=== PATIENT | male | born 1950 | race Caucasian/White ===

== ENCOUNTER 2019-08-21 09:42 | Inpatient (IN) | payer MEDICARE, MEDICAID ==
[~2019-08-21] VITALS: Ht 177.8 cm; Wt 116.0 kg
[~2019-08-21 09:42] MED LIST: FURO20TA2 PO; LISI-542 PO; ONDA-83 PO; OXYC-517 PO; SIMV20TA22 PO; ZYLO300T6 PO
[2019-08-21 12:50] VITALS: BP 129/67
[2019-08-21] MEDS ORDERED: NS 2,000 ML IV ONE ×2 (13:15→19:00)
[2019-08-21] MEDS ORDERED: NS 1,000 ML IV SCH (13:16)
--- NOTE | 2019-08-21 13:51 | REP ---
Portable chest, 01:30 p.m., single AP view with the the patient sitting: There are no comparisons. The lung torres are clear. The cardiac size is normal. The suresh, mediastinum, and skeletal structures are unremarkable. Impression: Negative portable chest. Electronically Signed by David Rogers MD 08/21/2019 01:43 P
[2019-08-21 14:54] LABS: IONIZED CALCIUM 4.5 MG/DL (4.5-5.3)
[2019-08-21 15:01] LABS: BASO % 0.2 % (0.0-1.0); HEMATOCRIT 34.5 % (42.0-52.0); HEMOGLOBIN 10.5 g/dl (13.5-17.5); LYMPH # 0.5 10^3/uL (1.5-5.0); MEAN CORPUSCULAR HEMOGLOBIN 26.1 pg (27.0-33.0); MEAN CORPUSCULAR HGB CONC 30.4 g/dl (32.0-36.5); MEAN CORPUSCULAR VOLUME 85.6 fl (80.0-96.0); MONO # 0.2 10^3/uL (0.0-0.8); MONO % 3.2 % (0.0-5.0); NEUTROPHILS # 5.2 10^3/uL (1.5-8.5); NEUTROPHILS % 88.1 % (36.0-66.0); PLATELET COUNT, AUTOMATED 274 10^3/uL (150-450); RED BLOOD COUNT 4.03 10^6/uL (4.30-6.10); WHITE BLOOD COUNT 5.9 10^3/uL (4.0-10.0)
[2019-08-21 15:24] LABS: ALBUMIN 2.2 GM/DL (3.2-5.2); ALT/SGPT 21 U/L (12-78); BILIRUBIN,TOTAL 0.8 MG/DL (0.2-1.0); BLOOD UREA NITROGEN 9 MG/DL (7-18); C REACTIVE PROTEIN QUANTITATIV 7.73 MG/DL (0.00-0.30); CALCIUM LEVEL 8.2 MG/DL (8.8-10.2); CARBON DIOXIDE LEVEL 24 MEQ/L (21-32); CHLORIDE LEVEL 111 MEQ/L (98-107); CK-MB VALUE MASS < 1.0 NG/ML (<3.6); CPK CREATINE PHOSPHOKINASE 19 U/L (39-308); CREATININE FOR GFR 0.71 MG/DL (0.70-1.30); GLOMERULAR FILTRATION RATE > 60.0 (>49); GLUCOSE, FASTING 140 MG/DL (70-100); MAGNESIUM LEVEL 1.9 MG/DL (1.8-2.4); MB/CK RELATIVE INDEX 5.26 (< OR =4); POTASSIUM SERUM 3.8 MEQ/L (3.5-5.1); SODIUM LEVEL 141 MEQ/L (136-145); TOTAL PROTEIN 5.3 GM/DL (6.4-8.2); TROPONIN I < 0.02 NG/ML (< 0.10)
[2019-08-21 15:26] LABS: HEMOGLOBIN A1c 5.8 %
[2019-08-21 15:27] LABS: INR 1.35; PROTHROMBIN TIME 16.4 SECONDS (11.8-14.0)
[2019-08-21 15:28] LABS: PARTIAL THROMBOPLASTIN TIME 37.8 SECONDS (25.0-38.4)
[2019-08-21 15:37] LABS: ERYTHROCYTE SEDIMENTATION RATE 37 mm/hr (0-20)
[2019-08-21] MEDS ORDERED: NS 1,000 ML IV ONE (15:45)
[2019-08-21] MEDS ORDERED: allopurinoL 300 MG TAB PO ONE (15:45)
--- NOTE | 2019-08-21 16:07 | HPE ---
DATE OF ADMISSION: 08/21/2019 PRIMARY CARE PROVIDER: Rylee Markham MD ONCOLOGIST: Bernardo Onofre MD CHIEF COMPLAINT: Transferred from [facility] where he presented with hypotension. HISTORY OF PRESENT ILLNESS: This is a 68-year-old male with past medical history significant for hypertension, chronic low back pain, degenerative joint disease, colonic polyps in 2015, community acquired pneumonia in early July 2019, smoker a pack a day for about 50 years and alcohol abuse, and distant history of illicit drug use was in his usual state of health until around May 2019 when he had an upper respiratory infection treated with antibiotics, increasing fatigue, weakness and a 70 pound weight loss over the past 2 months. The patient was seen at [facility], was diagnosed with community acquired pneumonia in July, was treated with Rocephin and doxycycline. He was positive for coronavirus at that time. Repeat CT this time of the abdomen showed retroperitoneal lymphadenopathy with a 3.1 cm portal caval lymph node and periaortic lymph node of 2 cm in short axis. Since then the patient has had no energy, poor appetite, on fevers, no chills, but has had decrease in activity level. He lives with his sister and [id number] and this past Monday the patient says "that he did not feel well". He then went to [facility] emergency room and was found to be hypotensive with systolic pressure in the 80s. He was unable to walk and not himself. At that time no fever. Chest x-ray showed possible infiltrates and was treated for presumed pneumonia. Patient was ruled out for adrenal insufficiency. Echo was unremarkable. Patient was given intravenous fluids with systolic pressure improving to 120 to 130 systolic. Due to ongoing symptoms and plans for biopsy on Monday, family had requested transfer to [facility] where is oncologist is located. Patient denies any abdominal pain, nausea or vomiting. He has had decrease in appetite, 70 pound weight loss. No changes in vision, rhinorrhea, cough, shortness of breath. He denies any dysuria, urgency or frequency. Denies any chills. Complains of fatigue, generalized weakness, anorexia. PAST MEDICAL HISTORY: Degenerative joint disease. Chronic back pain. Colonic polyps. Pneumonia. Hypertension. Dyslipidemia. History of polysubstance abuse. Previous smoker, 50 pack year history. No diagnosis of COPD or emphysema. Heavy alcohol abuse. None in the past few months. Illicit drug use as a teenager. HOME MEDICATIONS: - Lasix 20 daily - lisinopril 5 mg daily - oxycodone 5 mg every 4 hours if needed for pain - simvastatin 20 mg daily ALLERGIES: CODEINE resulting in hives. PAST SURGICAL HISTORY: colonoscopy SOCIAL HISTORY: Currently lives with his sister and his [id number]. 1 pack a day cigarettes for 50 years. Quit in June. History of heavy alcohol abuse, recreational drug use as a kid. FAMILY HISTORY: Father age 95, mother at age of 45 with blood clot. REVIEW OF SYSTEMS: Per HPI. 12-point system otherwise negative. PHYSICAL EXAMINATION: Temperature 97.5, pulse 93, respiratory 22, blood pressure 129/67, 98% on room air. GENERAL: Patient appears older than his stated age. Disheveled appearing. Very coarse rodriguez. No jugular venous distention (JVD). No thyromegaly. Dry mucous membranes. NECK: Supple. Positive cervical lymphadenopathy on the right. No axillary, cervical or supraclavicular lymphadenopathy noted. LUNGS: Clear to auscultation. No wheezing or rales. HEART: S1, S2, sinus rhythm. No murmurs, rubs or gallops. ABDOMEN: Soft, nontender, nondistended. Positive hepatomegaly about 12 cm. Positive bowel sounds times four quadrants. No rebound, guarding. No abdominal bruits. EXTREMITIES: 2+ pitting edema to the sacrum. LABORATORY DATA: White count 5.9, hemoglobin 10, hematocrit 34, platelet count 274, 99% neutrophils, 8% lymphocytes. Sed rate pending. Metabolic panel: Lactic acid, ionized calcium is 4.5, magnesium, liver function tests, cardiac markers, LDH, serum protein electrophoresis (SPEP), TSH pending. Chest x-ray 08/21/2019: Negative portable chest. Venous Doppler bilateral lower extremities are pending. ASSESSMENT AND PLAN: This is a 68-year-old male with a history of hypertension, degenerative joint disease, chronic back pain, dyslipidemia, history of 50 pack year history of smoking, history of alcohol abuse presented with several month history since May of weight loss, decreased appetite, anorexia and fatigue found to have multiple retroperitoneal lymphadenopathy and splenomegaly. Evaluated as outpatient by oncologist Dr. Onofre with recommendations to proceed with biopsy. Patient has been deteriorating according to the family and presented with hypotension as the patient was taking his blood pressure medications and diuretics despite decrease in oral intake at home. He was admitted at [facility] for 3 days, worked up for adrenal insufficiency, acute infectious process, as well as cardiogenic etiology. Patient's echo was unremarkable. He was negative for adrenal insufficiency, was initially treated with antibiotics for presumed infection in the lungs where he had bilateral lower lobe infiltrate. He did receive significant fluid resuscitation and has since developed lower extremity edema according to the patient. Patient had requested transfer to [facility] due to oncology services. He is scheduled to have a CT guided biopsy on 08/22/2019. IMPRESSION: 1. Retroperitoneal lymphadenopathy, rule out lymphoma. Patient will undergo CT guided biopsy of the retroperitoneal lymph node. Dr. Onofre has been consulted from medical oncology for further guidance. At this time patient will be continued on full supportive care. If he should develop a fever, will rule out acute infectious process, no empiric antibiotics will be given as there appears to be no signs of acute infection.Chest x-ray is negative. 2. Hypotension. Patient's blood pressure on arrival was 97 systolic. He was awake, alert and oriented. Did not complain of any dizziness or lightheadedness. No sign of orthostasis. Patient's blood pressure medications will be held for now.rule out infectious etiology. CXR was negative. check ua urine cx. adrenal insufficiency workup at [facility] was negative. check blood cx. trial of ivfluids. 2D echo and cycle cardiac markers. 3. Dyslipidemia. May resume on home dose of Zocor. Hyperuricemia. Patient may be resumed on his home dose of allopurinol. 4. Chronic low back pain. As needed pain medication. 5. History of chronic polyps which were negative. 6.Hyperuricemia. continue allopurinol 7. Lactic Acidosis. trial of ivfluids 8. B/L LE edema r/o DVT with bilateral dopplers. 9. History of Chronic ETOH abuse, quit ETOH. 10. History of 50 pack years of cigarette smoking. no documented history of emphysema. Deep venous thrombosis (DVT) prophylaxis with compression stockings due to planned biopsy in the morning. CODE STATUS: FULL CODE. Health Care Proxy: Aruna Bella sister home [phone] cell [phone] [facility]
--- NOTE | 2019-08-21 16:57 | REP ---
Duplex extremity venous ultrasound: Bilateral lower extremity. History: Edema, rule out DVT. Findings: The deep veins are anechoic and fully compressible from the groin to the popliteal fossa in the left and right lower extremity. Color flow imaging is homogeneous. Spectral Doppler interrogation demonstrates intact respiratory variation in flow and normal manual augmentation of flow. There is no evidence of deep vein thrombosis. Impression: Negative bilateral lower extremity duplex venous ultrasound. No evidence of deep vein thrombosis. Electronically Signed by Librado Bailey MD 08/21/2019 04:49 P
[2019-08-21 16:58] VITALS: BP 136/66
[2019-08-21] MEDS ORDERED: ISOVUE-370 76% 100ML VIAL (Q9967) As Ordered ONE (17:01)
[2019-08-21] MEDS: GASTROGRAFIN SOLUTION 30ML PO SCH ×2 (18:06→18:10)
[2019-08-21] MEDS ORDERED: ZOSY3INJ2 IV (18:12)
[2019-08-21] MEDS ORDERED: AFRISPR3 (18:12)
[2019-08-21] MEDS ORDERED: FLON1SPR (18:12)
[2019-08-21] MEDS ORDERED: VITMTA PO (18:12)
[2019-08-21] MEDS ORDERED: HYDR-643 PO (18:12)
[2019-08-21] MEDS ORDERED: IBUP200C28 PO (18:12)
[2019-08-21] MEDS ORDERED: VANC-7 IV (18:12)
[2019-08-21] MEDS ORDERED: COLA100C5 PO (18:12)
[2019-08-21] MEDS ORDERED: MOM 30ML SUSPENSION UDC PO ONE (19:00)
[2019-08-21] MEDS ORDERED: POLYETHYLENE GLYCOL (MIRALAX) 238GM BOTTLE PO ONE (20:00)
--- NOTE | 2019-08-21 20:26 | REPVR ---
PROCEDURE INFORMATION: Exam: CT Angiography Chest With Contrast Exam date and time: 08/21/2019 7:30 PM Age: 68 years old Clinical indication: Other: Edema; Additional info: B/l le edema R/O pe TECHNIQUE: Imaging protocol: Computed tomographic angiography of the chest with intravenous contrast. 3D rendering: MIP and/or 3D reconstructed images were created by the technologist. Radiation optimization: All CT scans at this facility use at least one of these dose optimization techniques: automated exposure control; mA and/or kV adjustment per patient size (includes targeted exams where dose is matched to clinical indication); or iterative reconstruction. Contrast material: ISOVUE 370; Contrast volume: 100 ml; Contrast route: IV; COMPARISON: CR PORTABLE CHEST X-RAY 08/21/2019 1:28 PM FINDINGS: Pulmonary arteries: The main pulmonary artery measures 30 mm. No pulmonary embolism is identified. Aorta: The ascending thoracic aorta measures 31 mm. Lungs: Mild bilateral lower lobe compressive atelectasis, right greater than left. Slight interstitial prominence with minimal scattered atelectasis or scar in the remaining lungs. Pleural space: Minimal bilateral pleural effusions which are relatively symmetric. Heart: Unremarkable. No cardiomegaly. No pericardial effusion. Liver: Nonspecific low-attenuation area in the posterior right hepatic lobe measuring approximately 10 x 15 mm. Spleen: Probable mild splenomegaly. Adrenals: Left adrenal nodule measuring 15 mm. Intraperitoneal space: Trace anterior perihepatic fluid. Lymph nodes: Borderline celiac adenopathy at minimum. Borderline to mild mediastinal and bilateral hilar adenopathy. Borderline right and mild left axillary adenopathy with left axillary nodes measuring up to 2.6 x 3.2 x 2.8 cm on the left. Small nodes are noted just above the left hemidiaphragm anteriorly. Bones/joints: Degenerative spondylosis of the lower cervical spine with prominent posterior osteophytes in the cervical spine and varying degrees of spinal stenosis and prominent encroachment on the right lateral recess at C4-C5. There is segmental ankylosis through much of the mid and upper thoracic spine. There is calcified hypertrophy of the posterior longitudinal ligament in the lower cervical spine. Soft tissues: Unremarkable. IMPRESSION: 1. Minimal bilateral pleural effusions with mild bilateral lower lobe compressive atelectasis and slight interstitial prominence and minimal scattered atelectasis in the remaining aerated lungs. 2. Borderline to mild mediastinal, bilateral hilar adenopathy and minimal right and mild left axillary adenopathy. There is also at least borderline celiac adenopathy which is nonspecific but may be seen with chronic liver disease. In view of other adenopathy, lymphoma may be a consideration. 3. Ankylosis through much of the thoracic spine and prominent degenerative posterior osteophytes in the lower thoracic spine with varying degrees of spinal and neural foraminal stenosis. 4. Nonspecific low-attenuation area in the right hepatic lobe measuring 10 x 15 mm. 5. Probable mild splenomegaly. 6. Left adrenal nodule measuring 15 mm. Consider 12 month follow-up adrenal CT. ([facility], ACR White Paper, 2017). 7. Trace anterior perihepatic fluid which is nonspecific. 8. No pulmonary embolism is identified. Electronically signed by: Anthony Quezada On 08/21/2019 20:26:11 PM
--- NOTE | 2019-08-21 20:39 | REPVR ---
PROCEDURE INFORMATION: Exam: CT Abdomen And Pelvis With Contrast Exam date and time: 08/21/2019 7:30 PM Age: 68 years old Clinical indication: Abdominal pain; Generalized; Additional info: Abd pain, constipation, retroperitoneal lad R/O obstruction TECHNIQUE: Imaging protocol: Computed tomography of the abdomen and pelvis with intravenous contrast. Radiation optimization: All CT scans at this facility use at least one of these dose optimization techniques: automated exposure control; mA and/or kV adjustment per patient size (includes targeted exams where dose is matched to clinical indication); or iterative reconstruction. Contrast material: ISOVUE 370; Contrast volume: 100 ml; Contrast route: IV; COMPARISON: CT ABD/PELVIS W/ CONTRAST - OUTSIDE PRIOR 07/24/2019 12:00 AM FINDINGS: Pleural space: Minimal bilateral pleural effusions with compressive atelectasis of the adjacent lower lobes. Liver: The liver at mid clavicular line measures 16.6 cm. Low-attenuation areas in the liver measuring up to 14 mm with a Hounsfield measurement of 14 which may reflect cysts. Gallbladder and bile ducts: The gallbladder is somewhat contracted with internal density which may reflect sludge or faint stones. There is pericholecystic induration. Pancreas: Normal. No ductal dilation. Spleen: The spleen measures 17.7 cm. Adrenals: Left adrenal nodule measuring 15 mm. Kidneys and ureters: Minimal nonobstructing right renal calculus in the lower pole. There is a left renal cyst measuring up to 17 mm. Stomach and bowel: Unremarkable. No obstruction. No mucosal thickening. Appendix: There are no changes of appendicitis. A normal appendix is not seen. Intraperitoneal space: Minimal scattered peritoneal ascites. Retroperitoneal space: There is some retroperitoneal induration in the pelvis. Vasculature: There is minimal atherosclerotic calcification of the abdominal aorta. Lymph nodes: Mild celiac adenopathy with a node interposed between the IVC and proximal main portal vein measuring 3.9 x 2.2 x 5.4 cm. There is continuation of prominent nodes into the retroperitoneal periaortic and pericaval regions with extension along the iliac chains into the pelvis with numerous mildly enlarged nodes which measure up to 3.9 x 1.7 x 3.8 cm on the right. No significant compression of the iliac vasculature is noted. Enlarged retrocrural node just above the diaphragmatic hiatus adjacent to the aorta measuring 2.5 x 1.9 x 3.6 cm. Borderline left inguinal nodes. Bladder: Unremarkable as visualized. Reproductive: Unremarkable as visualized. Bones/joints: Unremarkable. No acute fracture. Soft tissues: Small fat filled umbilical hernia. IMPRESSION: 1. Mild splenomegaly and borderline hepatomegaly which is similar to 07/24/2019. 2. Minimal peritoneal ascites which is slightly increased overall since the prior study. 3. Minimal bilateral pleural effusions which are increased since the prior study with some secondary compressive atelectasis in the adjacent lower lobes. 4. Mild abdominal and pelvic adenopathy which is decreased overall since the prior study. There is decreased retroperitoneal edema or induration in the pelvis although residual remains. 5. The gallbladder is somewhat contracted with faint internal material suggesting faint stones or sludge with pericholecystic induration which is similar to slightly increased since the prior study. 6. Left adrenal nodule measuring 15 mm. Consider 12 month follow-up adrenal CT. ([facility] Black, ACR White Paper, 2017). 7. Minimal nonobstructing right renal calculus. 8. No bowel dilatation or bowel obstruction. There is slight stool distention of the rectum which is slightly increased since the prior study. Electronically signed by: Anthony Quezada On 08/21/2019 20:38:59 PM
[2019-08-21] MEDS ORDERED: DOCUSATE SODIUM 100 MG CAP PO SCH (21:00)
--- NOTE | 2019-08-21 21:02 | CR ---
DATE OF CONSULTATION: 08/21/2019 CONSULTATION REPORT FOR: Genoveva Rios MD REASON FOR CONSULTATION: Evaluation of diffuse pathologic lymphadenopathy with organomegaly. IDENTIFICATION AND CHIEF COMPLAINT: Rogers Segundo is a very pleasant 68-year-old gentleman seen at the request of Genoveva Rios MD during inpatient hospital stay. The patient reports "I got really sick on Monday, I knew I had to go to the hospital because I felt just terrible." HISTORY OF PRESENT ILLNESS: oRgers Segundo is a very pleasant 68-year-old gentleman whose history of present illness dates to 2018, when he developed an upper respiratory infection. He self-medicated initially and deferred medical evaluation until 2019. However, on 2019, he became profoundly ill with fatigue and malaise and was unable to rise from bed, by which point his sister brought him to [facility]. He was admitted on 07/18/2019 after chest radiogram showed infiltrates suggestive of community-acquired pneumonia. He was treated empirically using Rocephin and doxycycline as well as nebulizers and supplemental oxygen, and he gradually improved. Laboratory studies showed coronavirus NL63 by molecular diagnostics from a nasopharyngeal swab. He was discharged from [facility] and underwent CT scan on 07/24/2019. That study showed hepatosplenomegaly as well as extensive retroperitoneal pathologic lymphadenopathy. A large portacaval lymph node was noted measuring 3.1 cm in short axis on that study and a retrocrural periaortic lymph node on the right side measured 2 cm in short axis. The patient was also noted to be anemic and was therefore referred to hematology/oncology. Mr. Segundo was seen as an outpatient in medical oncology at [facility] on 08/06/2019. At which time, he reported an approximately 40-pound weight loss over the past six months with anorexia and poor energy. The patient has a history of chronic low back pain but that had been stable over the past 40 years. On examination during his initial outpatient evaluation, physical examination showed palpable pathologic or lymphadenopathy in the cervical, supraclavicular and axillary regions. The largest lymph node measured 2 cm in the left axilla. In addition, the patient was noted to have hyperuricemia with a uric acid level elevated to 8.3 mg/dL. The patient was contacted and started on allopurinol at that time. He was then referred for lymph node biopsy by interventional radiology at [facility]. However, the patient developed profound malaise on the morning of 08/18/2019, which became progressively more severe over the course of the day. He was therefore brought to [facility] where he was noted to be hypotensive. He was resuscitated with aggressive fluids, and then transferred to [facility] earlier today 08/21/2019. On presentation, the patient had lactic acidosis with a lactate level of 4.4. Following aggressive fluid hydration, he reports feeling markedly better. He states his appetite has returned, and he is able to walk without assistance. He reports no fevers, chills nor sweats. ALLERGIES: The patient is intolerant of CODEINE which has resulted in hives in the past. MEDICATIONS ON ADMISSION: - furosemide 20 mg by mouth daily - lisinopril 5 mg by mouth daily - oxycodone 5 mg by mouth every four hours as needed for pain - simvastatin 20 mg by mouth daily PAST MEDICAL HISTORY: The patient has a past history significant for essential hypertension as well as dyslipidemia. There is a history of chronic low back pain associated with intervertebral disc disease and a history of degenerative joint disease that is widespread. The patient was found to have multiple polyps of the colon excised initially in the year 2015 with recurrent polyps excised in March 2019. As noted, the patient had community-acquired pneumonia in early July 2019 with findings of coronavirus NL63. SOCIAL HISTORY: Tobacco: The patient smoked approximately one pack per day for 50 years but quit at [place] 2018. Alcohol: The patient consumed alcohol heavily in the past but none in recent months. Illicit drugs: There is a distant history of illicit drug use in his youth. FAMILY HISTORY: The patient's mother from thromboembolic disease at the age of 45. The patient's father is alive at the age of 95. REVIEW OF SYSTEMS: NEUROLOGIC: No history of head trauma, seizure disorder or focal neurologic deficits aside from chronic low back pain. RESPIRATORY: History of pneumonia in July 2019 with coronavirus as noted. No cough at present. No chest pain. No dyspnea at rest. CARDIAC: No history of myocardial infarction. No exertional chest pressure. No orthopnea. The patient does have intermittent leg edema. GASTROINTESTINAL: Weight loss as noted. No recent nausea, vomiting or abdominal pain. No history of hepatitis. GENITOURINARY: No history of hematuria. No dysuria. No history of nephrolithiases. No known history of gout but hyperuricemia recently identified as noted. CONSTITUTIONAL: The patient reports fatigue and malaise as well as weight loss. The patient's malaise has dramatically improved over the last 12 hours. Remainder of the review of systems was obtained and was negative. PHYSICAL EXAMINATION: The patient is a tall, well-developed, well-nourished gentleman awake, alert and fully oriented, friendly and cooperative, in no distress at this time. Temperature 97.4, pulse 89, respirations 19, blood pressure 136/66, oxygen saturation 98% on room air. SKIN: Full turgor, anicteric. HEENT: Normocephalic, atraumatic. Pupils round and reactive. Extra muscles intact. Sclerae anicteric. Oropharynx without lesions. NECK: Supple without appreciable thyromegaly. LYMPHATICS: There is a single lymph node palpable in the posterior cervical chain on the right and a single supraclavicular lymph node palpable on the right measuring 1 cm. There is now left cervical lymphadenopathy with two palpable lymph nodes in the left anterior mid cervical chain. In the axilla, there are now bilateral lymph nodes palpable, the largest measuring approximately 3 cm in the right axilla, with two adjacent smaller lymph nodes palpable. In the left axilla, there is a 2 cm lymph node which is mobile and fleshy in texture. There is no appreciable inguinal lymphadenopathy. LUNGS: Lungs are resonant to percussion with occasional inspiratory rales in the right mid lung field but clear breath sounds throughout the left lung field. CARDIAC: Regular rhythm, point of maximal impulse nondisplaced, S1, S2, without gallop, rub or murmur. ABDOMEN: Active bowel sounds, soft, nontender. The liver percusses to 14 cm and appears mildly enlarged. The spleen percusses to 14 cm and is palpably enlarged but nontender. No guarding or rebound elicited. RECTAL: Examination deferred. EXTREMITIES: Without clubbing or cyanosis but there is 1+ edema of both lower extremities. NEUROLOGIC: Mental status intact. Cranial nerves intact. Motor and sensory grossly intact. LABORATORY DATA: Laboratory studies dated 08/21/2019 include a white blood count normal at 5900 per microliter, hemoglobin 10.5 grams/deciliter, hematocrit 34.5%, platelet count 274,000. BUN 9, creatinine 0.71 mg/dL, glucose 140 mg/dL, calcium 8.2 mg/dL, total bilirubin 0.8 mg/dL, C-reactive protein markedly elevated at 7.73, Beta-2 microglobulin from 08/06/2019 markedly elevated at 5.2 mg/dL. IMPRESSION: B-cell lymphoma. The patient has a B-cell lymphoma based on the pattern of lymphadenopathy, organomegaly, and elevation of the beta-2 microglobulin. Elevated beta-2 microglobulin is a footprint of a B-cell lymphoproliferative disorder, as the beta-2 microglobulin is only hydrogen bonded to the surface of B lymphocytes, and is shed into the blood in proportion to the burden of B lymphocytes in the body. Elevation of beta-2 microglobulin is not a typical finding in a T-cell lymphoma or other malignancy. RECOMMENDATIONS: It is recommended that the patient undergo lymph node biopsy, which is significantly more informative and helpful in guiding treatment than fine-needle aspirate. Lymph node architecture is important in discerning between follicular lymphomas and diffuse B-cell lymphoma as. Consequently, core biopsy is important for proper diagnosis and treatment planning. When biopsy is obtained, a portion of the specimen should be obtained fresh and sent to the flow cytometry laboratory at [facility] ([facility] in order to fully characterize the B cells. This is in addition to a specimen to be submitted in formalin. Allopurinol is being continued, and uric acid level should be repeated. To complete staging, the patient should undergo bone and marrow biopsy, but this can be performed as an outpatient. It is unlikely that the patient has a highly aggressive lymphoma, but the possibility of an intermediate-grade lymphoma such as diffuse large B-cell lymphoma remains a possibility and if this is the diagnosis, the patient would require placement of a MediPort to facilitate chemotherapy. However, such a decision should await the histologic diagnosis. These issues were reviewed with the patient at the time of consultation, and the patient is eager to proceed with diagnosis staging and treatment. The medical oncology service will follow the patient during the remainder of his hospitalization. As noted by Dr. Rios, Mr. Segundo was scheduled for lymph node biopsy in the near future as an outpatient. It may be optimal to obtain the biopsy while he is an inpatient to facilitate diagnosis and treatment.
[2019-08-21] MEDS: SENOKOT S TAB PO SCH (21:50)
[2019-08-21] MEDS: SIMVASTATIN 20 MG TAB PO SCH (21:50)
[2019-08-21 22:00] VITALS: BP 138/67
[2019-08-22 05:58] LABS: BASO % 0.4 % (0.0-1.0); EOS # 0.1 10^3/uL (0.0-0.5); EOS % 0.8 % (0.0-3.0); HEMATOCRIT 37.6 % (42.0-52.0); HEMOGLOBIN 11.2 g/dl (13.5-17.5); LYMPH # 0.9 10^3/uL (1.5-5.0); LYMPH % 11.9 % (24.0-44.0); MEAN CORPUSCULAR HEMOGLOBIN 25.7 pg (27.0-33.0); MEAN CORPUSCULAR HGB CONC 29.8 g/dl (32.0-36.5); MEAN CORPUSCULAR VOLUME 86.4 fl (80.0-96.0); MONO # 0.5 10^3/uL (0.0-0.8); MONO % 7.3 % (0.0-5.0); NEUTROPHILS # 5.7 10^3/uL (1.5-8.5); NEUTROPHILS % 79.3 % (36.0-66.0); PLATELET COUNT, AUTOMATED 345 10^3/uL (150-450); RED BLOOD COUNT 4.35 10^6/uL (4.30-6.10); WHITE BLOOD COUNT 7.2 10^3/uL (4.0-10.0)
[2019-08-22 06:00] VITALS: BP 130/69
[2019-08-22 06:25] LABS: BLOOD UREA NITROGEN 7 MG/DL (7-18); CALCIUM LEVEL 8.2 MG/DL (8.8-10.2); CARBON DIOXIDE LEVEL 22 MEQ/L (21-32); CHLORIDE LEVEL 113 MEQ/L (98-107); GLOMERULAR FILTRATION RATE > 60.0 (>49); GLUCOSE, FASTING 106 MG/DL (70-100); POTASSIUM SERUM 3.1 MEQ/L (3.5-5.1); SODIUM LEVEL 145 MEQ/L (136-145)
[2019-08-22] MEDS ORDERED: NS 1,000 ML IV ONE (07:30)
[2019-08-22] MEDS: allopurinoL 300 MG TAB PO SCH (07:51)
[2019-08-22] MEDS: SENOKOT S TAB PO SCH (07:51)
[2019-08-22] MEDS ORDERED: POTASSIUM CHLORIDE 10 MEQ SR TABLET PO ONE (08:00)
[2019-08-22] MEDS ORDERED: ENOXAPARIN 40 MG/0.4 ML SYRINGE (J1650) SC SCH (09:00)
[2019-08-22] MEDS ORDERED: MIRALAX *UNIT DOSE* 17GM PACKET PO SCH (09:00)
--- NOTE | 2019-08-22 11:15 | IPN ---
DATE OF SERVICE: 08/22/2019 The patient was admitted yesterday due to persistent lactic acidosis, retroperitoneal lymphadenopathy for evaluation for lymphoma and biopsy, transferred from [facility]. The patient complains of slight shortness of breath. The patient has received 3 liters of intravenous (IV) fluids due to persistent lactic acidosis. Procalcitonin is pending. CT chest, abdomen and pelvis shows no acute infectious process but with significant lymphadenopathy that is diffuse and splenomegaly. Afebrile. No chills. No nausea or vomiting. The patient did complain of constipation yesterday with eight bowel movements after bowel regimen was given. Temperature 97.6, pulse 88, respiratory rate 18, blood pressure 130/69, 97% on room air. Generally, the patient appears older than his stated age. He is disheveled-appearing with an unkempt rodriguez. No jugular venous distention (JVD) or thyromegaly. Poor dentition. Dry mucous membranes. LUNGS: Bibasilar rales. Air entry is equal in upper lobes. HEART: S1, S2, sinus rhythm. ABDOMEN: Soft, nontender, nondistended. Positive bowel sounds times four quadrants. Positive hepatosplenomegaly. No abdominal bruit. EXTREMITIES: 2+ pitting edema. White count 7.2, hemoglobin 11, hematocrit 37, platelet count 345. Sodium 145, potassium 3.1, chloride 113, bicarbonate 22, BUN 7, creatinine 0.8, glucose of 106, lactic acid of 5.3. IMAGING STUDIES: CT chest, abdomen and pelvis: Minimal bilateral pleural effusions, mild bilateral lower lobe compressive atelectasis, slight interstitial prominence, minimal scattered atelectasis in the remaining aerated lungs. Borderline to mild mediastinal, bilateral hilar adenopathy and minimal right and mild left axillary adenopathy. There is at least borderline celiac adenopathy which is nonspecific but may be seen with chronic liver disease. In view of other adenopathy, lymphoma may be a consideration. Ankylosis through much of the thoracic spine and prominent degenerative posterior osteophytes in the lower thoracic spine with varying degrees of spinal and neural foraminal stenosis. Nonspecific low-attenuation area in the right hepatic lobe measuring 10 x 15 mm. Mild splenomegaly. Left adrenal nodule measuring 15 mm. Consider [address] Trace anterior perihepatic fluid which is nonspecific. No pulmonary embolism is identified. ASSESSMENT AND PLAN: This is a 68-year-old male with a history of 70-pound weight loss, fatigue, and chills, who was found to have significant lymphadenopathy. Has been seen by Dr. Onofre with suspicion for lymphoma. Admitted recently to [facility] due to not feeling well. Was found to be hypotensive and recently taking his blood pressure medications at home. He had significant lactic acidosis, resuscitated and treated at [facility] for possible pneumonia with intravenous (IV) antibiotics. CURRENT ISSUES: Are as follows: 1. Retroperitoneal lymphadenopathy, rule out lymphoma. The patient's CT also shows significant lymphadenopathy, status post CT-guided biopsy today. The patient is to followup with Dr. Onofre to determine next course of action for chemotherapy. 2. Lactic acidosis, ruling out infection. The patient's urine and chest CT are negative. Respiratory panel was negative. He remains afebrile. Continue with fluid hydration, electrolyte supplementation. No empiric antibiotics unless infection is identified or the patient worsens clinically. 3. Hypertension. Blood pressure (BP) medications have been held due to low blood pressure at [facility]. Blood pressure here appears to be stable at 129-130 systolic. 4. History of smoking. Quit June 2019. No formal diagnosis of chronic obstructive pulmonary disease (COPD) or emphysema. 5. Dyslipidemia. On home Zocor. 6. Chronic low back pain. As-needed medications. 7. History of colonic polyps, which were negative. 8. Hyperuricemia. Continue allopurinol. 9. Lower extremity edema, most likely secondary to fluid resuscitation for lactic acidosis. Lower extremity Dopplers were negative for deep venous thrombosis (DVT). 10. Deep venous thrombosis prophylaxis, currently compression stockings due to planned biopsy. May start on Lovenox post biopsy. MTDD
[2019-08-22] MEDS: NS 1,000 ML IV SCH ×2 (11:26→21:24)
[2019-08-22 14:00] VITALS: BP 119/67
[2019-08-22 16:16] VITALS: BP 136/66
[2019-08-22 17:00] VITALS: BP 136/69
[2019-08-22 17:30] VITALS: BP 133/72
[2019-08-22] MEDS: SIMVASTATIN 20 MG TAB PO SCH (20:26)
[2019-08-22 22:00] VITALS: BP 119/66
[2019-08-23 06:00] VITALS: BP 118/69
[2019-08-23 06:15] LABS: BASO % 0.4 % (0.0-1.0); EOS # 0.2 10^3/uL (0.0-0.5); EOS % 3.3 % (0.0-3.0); HEMATOCRIT 31.3 % (42.0-52.0); HEMOGLOBIN 9.6 g/dl (13.5-17.5); LYMPH # 1.3 10^3/uL (1.5-5.0); LYMPH % 24.7 % (24.0-44.0); MEAN CORPUSCULAR HEMOGLOBIN 26.2 pg (27.0-33.0); MEAN CORPUSCULAR HGB CONC 30.7 g/dl (32.0-36.5); MEAN CORPUSCULAR VOLUME 85.3 fl (80.0-96.0); MONO # 0.4 10^3/uL (0.0-0.8); MONO % 8.6 % (0.0-5.0); NEUTROPHILS # 3.2 10^3/uL (1.5-8.5); NEUTROPHILS % 62.6 % (36.0-66.0); PLATELET COUNT, AUTOMATED 306 10^3/uL (150-450); RED BLOOD COUNT 3.67 10^6/uL (4.30-6.10); WHITE BLOOD COUNT 5.1 10^3/uL (4.0-10.0)
[2019-08-23 06:40] LABS: BLOOD UREA NITROGEN 5 MG/DL (7-18); CALCIUM LEVEL 7.9 MG/DL (8.8-10.2); CARBON DIOXIDE LEVEL 24 MEQ/L (21-32); CHLORIDE LEVEL 112 MEQ/L (98-107); CREATININE FOR GFR 0.62 MG/DL (0.70-1.30); GLOMERULAR FILTRATION RATE > 60.0 (>49); GLUCOSE, FASTING 90 MG/DL (70-100); SODIUM LEVEL 143 MEQ/L (136-145)
[2019-08-23] MEDS: NS 1,000 ML IV SCH (07:16)
[2019-08-23 07:40] LABS: NT-PRO BNP 2495 PG/ML (<125)
[2019-08-23] MEDS: allopurinoL 300 MG TAB PO SCH (07:58)
[2019-08-23] MEDS: POTASSIUM CHLORIDE 10 MEQ SR TABLET PO SCH ×2 (07:59→08:33)
[2019-08-23] MEDS: ENOXAPARIN 40 MG/0.4 ML SYRINGE (J1650) SC SCH (07:59)
[2019-08-23] MEDS ORDERED: oxyCODONE 5MG TAB PO PRN (08:00)
--- NOTE | 2019-08-23 08:13 | REP ---
Chest x-ray: Two views. History: Short of breath. Comparison chest x-ray: August 21, 2019. Findings: On lateral radiograph, there is blunting of the posterior pleural angles indicating a small amount of bilateral pleural fluid. No definite infiltrate is seen in the lung torres. Heart is not enlarged. Impression: Small bilateral pleural effusions blunting the posterior pleural angles. No definite infiltrate. Electronically Signed by Librado Bailey MD 08/23/2019 08:05 A
--- NOTE | 2019-08-23 08:23 | REP ---
ULTRASOUND-GUIDED LEFT AXILLARY LYMPH NODE BIOPSY The procedure was performed under the direct supervision of Dr. Bailey. Patient has a history of left axillary lymphadenopathy seen on a previous CT scan dated 08/21/2019. The risks and benefits of the procedure were explained to the patient and informed consent was obtained. A left axillary lymph node was localized using ultrasound guidance. The skin was prepped and draped in a sterile fashion. 1% lidocaine was used as a local anesthetic. Using ultrasound guidance a 17/18 gauge coaxial needle biopsy system was inserted and advanced into the lymph node. Eight core biopsy samples were obtained and sent to lab. The patient tolerated the procedure well and there were no immediate complications. After the appropriate amount of monitored convalescence the patient was discharged from the department. Electronically Signed by LEISA Mcbride 08/22/2019 05:37 P Electronically Signed by Librado Bailey MD 08/23/2019 08:14 A
[2019-08-23] MEDS ORDERED: oxyCODONE 5MG TAB PO ONE (09:00)
[2019-08-23] MEDS ORDERED: metOLazone 5 MG TAB PO ONE (09:30)
[2019-08-23] MEDS ORDERED: FUROSEMIDE 40 MG/4 ML VIAL (J1940) IV ONE (10:00)
--- NOTE | 2019-08-23 11:03 | IPN ---
DATE: 08/23/2019 The patient says that he is beginning to be dyspneic with exertion, 3+ edema through is sacrum. IV fluids discontinued. Patent was given Lasix this morning. No abdominal pain. He has had bowel movements. Awaiting pathology report. Then to proceed with management for his lymphoma. No fever, no chills, no weight loss. Patient is tolerating his diet well. No drenching night sweats over night. Still complains of fatigue and generalized weakness. Ambulating well from bed to the bathroom. Ambulated one time to the nurses station but felt some shortness of breath on exertion. No chest pain or pressure. No nausea or vomiting. Temperature 97.2, pulse 86, respiratory 19, blood pressure 118/69, 98% on room air. Generally, patient is awake, alert, oriented times three answering questions appropriately. He appears older than his stated age, extremely disheveled. Dry mucous membranes. Neck is supple. Full range of motion. No jugular venous distention (JVD). No thyromegaly. Lungs: Diminished breath sounds with bibasilar crackles. Expiratory wheezing. Heart: S1, S2, sinus rhythm. Abdomen is obese, soft, nontender, nondistended. Extremities: 3+ pitting edema. LABORATORY DATA: White count 5.1, hemoglobin 9.6, hematocrit 31, platelet count 306. Sodium 143, potassium 3, chloride 112, bicarbonate 24, BUN 5, creatinine 0.62, glucose 90, lactic acid 2.2, calcium 7.9, BNP 2495. Chest x-ray: Minimal bilateral pleural effusions. ASSESSMENT/PLAN: 68-year-old male with 80-pound weight loss since Thanksgiving sent to oncology. CT shows significant retroperitoneal lymphadenopathy and hepatosplenomegaly suspicious for lymphoma. Patient presented to [facility] due to not feeling well and was found to be hypotensive and was taking his blood pressure medications despite decreased oral intake with lactic acidosis. Patient was treated for presumed pneumonia and IV fluids. Echo was unremarkable. He was subsequently transferred to [facility] for continuity of his care with his medical oncologist. Patient, on arrival, had significant lactic acidosis with improvement with IV fluids. No signs of any kind of infection. No antibiotics have been given. IMPRESSION: 1. Significant lymphadenopathy, rule out lymphoma, status post lymph node biopsy awaiting results. 2. Lactic acidosis improved with IV fluids. No signs of acute infection. No empiric antibiotics have been given. Improved with normal saline. 3. Anasarca secondary to fluid hydration and protein calorie malnutrition. Patient is given Lasix for comfort awaiting 2D echo result. 4. Hypertension: Blood pressure medications were initially held due to low blood pressure of 97 on arrival. 5. History of smoking: Quit in June 2019. No prior diagnosis of chronic obstructive pulmonary disease (COPD) or emphysema. 6. Dyslipidemia: On chronic Zocor. 7. Chronic low back pain: As needed medications. 8. History of colonic polyps which were benign. 9. Hyperuricemia: Continue allopurinol. 10. Deep venous thrombosis prophylaxis: Lovenox today. MTDD
[2019-08-23 14:00] VITALS: BP 130/87
[2019-08-23] MEDS: SIMVASTATIN 20 MG TAB PO SCH (20:00)
[2019-08-23 22:00] VITALS: BP 117/71
[2019-08-24 06:00] VITALS: BP 128/69
[2019-08-24 07:06] LABS: BASO % 0.3 % (0.0-1.0); EOS # 0.3 10^3/uL (0.0-0.5); EOS % 4.5 % (0.0-3.0); HEMATOCRIT 32.6 % (42.0-52.0); HEMOGLOBIN 10.3 g/dl (13.5-17.5); LYMPH # 1.3 10^3/uL (1.5-5.0); LYMPH % 22.4 % (24.0-44.0); MEAN CORPUSCULAR HEMOGLOBIN 26.5 pg (27.0-33.0); MEAN CORPUSCULAR HGB CONC 31.6 g/dl (32.0-36.5); MEAN CORPUSCULAR VOLUME 83.8 fl (80.0-96.0); MONO # 0.4 10^3/uL (0.0-0.8); MONO % 7.1 % (0.0-5.0); NEUTROPHILS # 3.9 10^3/uL (1.5-8.5); PLATELET COUNT, AUTOMATED 332 10^3/uL (150-450); RED BLOOD COUNT 3.89 10^6/uL (4.30-6.10)
[2019-08-24 07:29] LABS: BLOOD UREA NITROGEN 5 MG/DL (7-18); CALCIUM LEVEL 8.6 MG/DL (8.8-10.2); CARBON DIOXIDE LEVEL 30 MEQ/L (21-32); CHLORIDE LEVEL 102 MEQ/L (98-107); CREATININE FOR GFR 0.69 MG/DL (0.70-1.30); GLOMERULAR FILTRATION RATE > 60.0 (>49); GLUCOSE, FASTING 95 MG/DL (70-100); SODIUM LEVEL 138 MEQ/L (136-145)
[2019-08-24] MEDS ORDERED: metOLazone 5 MG TAB PO ONE (08:30)
[2019-08-24] MEDS: ENOXAPARIN 40 MG/0.4 ML SYRINGE (J1650) SC SCH (08:45)
[2019-08-24] MEDS: allopurinoL 300 MG TAB PO SCH (08:46)
[2019-08-24] MEDS: POTASSIUM CHLORIDE 10 MEQ SR TABLET PO SCH ×2 (08:46→21:02)
[2019-08-24] MEDS ORDERED: FUROSEMIDE 40 MG/4 ML VIAL (J1940) IV ONE (09:00)
[2019-08-24 09:41] VITALS: BP 117/70
[2019-08-24] MEDS: FUROSEMIDE 40 MG/4 ML VIAL (J1940) IV SCH ×2 (12:00→18:00)
--- NOTE | 2019-08-24 12:02 | ECHO ---
DATE OF PROCEDURE: 08/23/2019 REFERRING PHYSICIAN: Dr. Genoveva Rios INDICATION: Shortness of breath. HEIGHT: 178 cm WEIGHT: 116 kg 2D MEASUREMENTS: Ventricular septum: 1.1 cm Posterior wall: 1.04 cm Left ventricle diastole: 5.5 cm Aortic root: 3.4 cm Left atrium: 4.0 cm Left atrial volume index: 25 Inferior vena cava: 1.4 cm (more than 50% respiratory variation) DOPPLER MEASUREMENTS: No aortic regurgitation. No aortic stenosis. Aortic valve velocity: 164 cm/s LVOT velocity: 108 cm/s LVOT VTI: 21.1 cm Trace mitral regurgitation. Mitral E velocity: 82.9 cm/s Mitral A velocity: 79.5 cm/s Trace tricuspid regurgitation. No pulmonic regurgitation. Pulmonary acceleration time: 190 ms MITRAL ANNULAR TISSUE DOPPLER: E prime lateral: 19.9 cm/s E prime septal: 11.2 cm/s DESCRIPTION: Rhythm was sinus. Image quality was fair. No pericardial effusion. This was a 2D, M-mode, color flow Doppler, and pulse wave Doppler examination and included mitral annular tissue Doppler. CONCLUSIONS: 1. Normal left ventricle internal dimensions and wall thickness. Normal regional left ventricle (LV) wall motion and wall thickening. Normal LV systolic function. Normal LV diastolic function. 2. Normal right ventricle size and systolic function. Pulmonary artery systolic pressure not elevated. 3. Moderate aortic valve sclerosis of a three-cuspid aortic valve. No aortic stenosis or regurgitation. 4. Mild mitral annular calcification. Trace mitral regurgitation. 5. Otherwise, normal appearing echocardiogram Doppler findings.
[2019-08-24 13:39] LABS: POTASSIUM SERUM 3.8 MEQ/L (3.5-5.1)
[2019-08-24 14:00] VITALS: BP 120/75
[2019-08-24] MEDS ORDERED: LEVALBUTEROL 1.25 MG/0.5 ML CONCENTRATE NEB INH PRN (19:00)
--- NOTE | 2019-08-24 19:01 | IPN ---
DATE: 08/24/2019 Patient is frustrated that there is no pathology reported as yet. It has been explained to him and his family repeatedly that the pathologist will provide us with a preliminary report once it is available. Patient did have a lymph node biopsy done on Monday. Patient had 5.5 liters urine output with improved lower extremity edema. He still complains of shortness of breath but refuses to take further Lasix this morning. Patient's potassium was 3.0, supplemented with potassium tablets. Afebrile overnight, complaining of shortness of breath without cough. No chills. Temperature 97.6, pulse 84, respiratory rate 18, blood pressure 117/70, 95% on room air. GENERAL: Awake, alert, oriented to person and place, disheveled appearing. Appears older than his stated age. No jugular venous distention (JVD). No thyromegaly. Moist mucous membranes . LUNGS: Clear to auscultation. HEART: S1, S2, sinus rhythm. ABDOMEN: Soft, nontender. Positive bowel sounds. Hepatosplenomegaly. EXTREMITIES: Pitting edema 3+. LABORATORY DATA: White count 6, hemoglobin 10, hematocrit 32, platelet count 332. Sodium 138, potassium 3, chloride 102, bicarbonate 30, BUN 6, BUN 5, creatinine 0.69, glucose 95, calcium 8.6. Respiratory panel: Two sets of blood cultures are pending. ASSESSMENT AND PLAN: This is a 68-year-old male with an 80 pound weight loss since who was sent to oncology, Dr. Onofre. CT at that time showed significant retroperitoneal lymphadenopathy, hepatosplenomegaly suspicious for lymphoma. Patient was awaiting a biopsy when he presented to [facility] Emergency Room due to not feeling well. Was found to be hypotensive and was taking his blood pressure medications. Despite oral intake, patient was found to have lactic acidosis, infiltrate on x-ray, and treated for presumed pneumonia with intravenous (IV) fluids and antibiotics. Echo was unremarkable. Due to persistent symptoms, patient was subsequently transferred to [facility] for further management. ACUTE ISSUES: 1. Lymphadenopathy, status post left axillary node biopsy by radiology. Rule out lymphoma. Patient's pathology report is still unavailable. Hopefully on Monday. Patient will need an [id number]-[id number] for chemotherapy. Defer to oncology. 2. Lactic acidosis, resolved with IV fluids. No empiric antibiotics and no signs of infection. BNP was elevated at 2495. Patient was started on fluids. Patient's procalcitonin was 0.1. No antibiotics had been given. 3. Hypokalemia secondary to Lasix. Patient has been supplemented. 4. Hyperlipidemia, on Zocor. 5. Obesity, body mass index (BMI) of 36, complicating his care. 6. History of smoking. Quit in June 2019. 7. Hypertension. Blood pressure medications have been held due to low blood pressure, 97 on arrival. 8. Dyslipidemia, on chronic Zocor. 9. History of benign colonic polyps. 10. Hypouricemia. Continue on allopurinol. 11. Chronic back pain, on oxycodone 5 mg every 4 as needed. DISPOSITION: Awaiting physical therapy clearance and pathology report. Patient will need [id number] placed once confirmed that he does have lymphoma. Outpatient chemotherapy. MTDD
[2019-08-24 19:40] LABS: BLOOD UREA NITROGEN 6 MG/DL (7-18); CALCIUM LEVEL 8.9 MG/DL (8.8-10.2); CARBON DIOXIDE LEVEL 32 MEQ/L (21-32); CHLORIDE LEVEL 98 MEQ/L (98-107); CREATININE FOR GFR 0.83 MG/DL (0.70-1.30); GLOMERULAR FILTRATION RATE > 60.0 (>49); GLUCOSE, FASTING 107 MG/DL (70-100); POTASSIUM SERUM 3.6 MEQ/L (3.5-5.1); SODIUM LEVEL 138 MEQ/L (136-145)
[2019-08-24] MEDS: LEVALBUTEROL 1.25 MG/0.5 ML CONCENTRATE NEB INH SCH (20:48)
[2019-08-24] MEDS: SIMVASTATIN 20 MG TAB PO SCH (21:02)
[2019-08-24 22:00] VITALS: BP 109/63
[2019-08-25 06:00] VITALS: BP 107/65
[2019-08-25 06:14] LABS: BASO % 0.3 % (0.0-1.0); EOS # 0.2 10^3/uL (0.0-0.5); EOS % 3.2 % (0.0-3.0); HEMATOCRIT 36.6 % (42.0-52.0); HEMOGLOBIN 11.2 g/dl (13.5-17.5); LYMPH # 1.3 10^3/uL (1.5-5.0); LYMPH % 20.3 % (24.0-44.0); MEAN CORPUSCULAR HEMOGLOBIN 25.7 pg (27.0-33.0); MEAN CORPUSCULAR HGB CONC 30.6 g/dl (32.0-36.5); MEAN CORPUSCULAR VOLUME 83.9 fl (80.0-96.0); MONO # 0.4 10^3/uL (0.0-0.8); MONO % 6.7 % (0.0-5.0); NEUTROPHILS # 4.5 10^3/uL (1.5-8.5); PLATELET COUNT, AUTOMATED 346 10^3/uL (150-450); RED BLOOD COUNT 4.36 10^6/uL (4.30-6.10); WHITE BLOOD COUNT 6.6 10^3/uL (4.0-10.0)
[2019-08-25 06:26] LABS: BLOOD UREA NITROGEN 7 MG/DL (7-18); CALCIUM LEVEL 9.1 MG/DL (8.8-10.2); CARBON DIOXIDE LEVEL 32 MEQ/L (21-32); CHLORIDE LEVEL 98 MEQ/L (98-107); CREATININE FOR GFR 0.76 MG/DL (0.70-1.30); GLOMERULAR FILTRATION RATE > 60.0 (>49); GLUCOSE, FASTING 101 MG/DL (70-100); POTASSIUM SERUM 3.5 MEQ/L (3.5-5.1); SODIUM LEVEL 137 MEQ/L (136-145)
[2019-08-25] MEDS: LEVALBUTEROL 1.25 MG/0.5 ML CONCENTRATE NEB INH SCH ×4 (07:38→19:29)
[2019-08-25] MEDS: ENOXAPARIN 40 MG/0.4 ML SYRINGE (J1650) SC SCH (09:51)
[2019-08-25] MEDS: allopurinoL 300 MG TAB PO SCH (09:51)
[2019-08-25] MEDS: MOM 30ML SUSPENSION UDC PO PRN ×2 (09:51→16:08)
[2019-08-25] MEDS: POTASSIUM CHLORIDE 10 MEQ SR TABLET PO SCH ×2 (09:51→20:30)
[2019-08-25 14:00] VITALS: BP 106/58
[2019-08-25] MEDS: SIMVASTATIN 20 MG TAB PO SCH (20:30)
[2019-08-25 22:00] VITALS: BP 102/64
[2019-08-26 06:00] VITALS: BP 100/63
[2019-08-26 06:02] LABS: BASO % 0.4 % (0.0-1.0); EOS # 0.3 10^3/uL (0.0-0.5); EOS % 3.6 % (0.0-3.0); HEMOGLOBIN 11.7 g/dl (13.5-17.5); LYMPH # 1.1 10^3/uL (1.5-5.0); LYMPH % 14.9 % (24.0-44.0); MEAN CORPUSCULAR HEMOGLOBIN 26.4 pg (27.0-33.0); MEAN CORPUSCULAR HGB CONC 31.6 g/dl (32.0-36.5); MEAN CORPUSCULAR VOLUME 83.3 fl (80.0-96.0); MONO # 0.5 10^3/uL (0.0-0.8); MONO % 6.8 % (0.0-5.0); NEUTROPHILS # 5.5 10^3/uL (1.5-8.5); NEUTROPHILS % 73.8 % (36.0-66.0); PLATELET COUNT, AUTOMATED 373 10^3/uL (150-450); RED BLOOD COUNT 4.44 10^6/uL (4.30-6.10); WHITE BLOOD COUNT 7.4 10^3/uL (4.0-10.0)
[2019-08-26 06:23] LABS: BLOOD UREA NITROGEN 8 MG/DL (7-18); CALCIUM LEVEL 9.2 MG/DL (8.8-10.2); CARBON DIOXIDE LEVEL 27 MEQ/L (21-32); CHLORIDE LEVEL 99 MEQ/L (98-107); CREATININE FOR GFR 0.84 MG/DL (0.70-1.30); GLOMERULAR FILTRATION RATE > 60.0 (>49); GLUCOSE, FASTING 95 MG/DL (70-100); SODIUM LEVEL 134 MEQ/L (136-145)
[2019-08-26] MEDS: LEVALBUTEROL 1.25 MG/0.5 ML CONCENTRATE NEB INH SCH ×2 (08:50→12:00)
[2019-08-26] MEDS: allopurinoL 300 MG TAB PO SCH (09:16)
[2019-08-26] MEDS: POTASSIUM CHLORIDE 10 MEQ SR TABLET PO SCH (09:17)
[2019-08-26] MEDS: ENOXAPARIN 40 MG/0.4 ML SYRINGE (J1650) SC SCH (09:18)
--- NOTE | 2019-08-26 13:12 | IPN ---
DATE OF SERVICE: 08/26/2019 The patient denies any chest pain, pressure, or tightness, lightheadedness, dizziness. Tolerating his diet well. Denies any night sweats, chills. He complains of bilateral knee pain, which is chronic, worse when he ambulates, unchanged from home. Temperature 98.6, pulse 99, respiratory rate 20, blood pressure 100/63, 94% on room air. Generally, awake, alert, oriented to person and place and time. Answering questions appropriately. He appears older than his stated age. Appears disheveled with a rodriguez. Dry mucous membranes . NECK: Is supple. No jugular venous distention (JVD). No thyromegaly. No cervical lymphadenopathy. LUNGS: Diminished but clear, in the upper lobes, he does have some crackles at the bases. HEART: S1, S2, sinus rhythm. ABDOMEN: Is soft, nontender, nondistended. Positive bowel sounds. EXTREMITIES: 2+ edema. LABORATORY DATA: Reviewed. ASSESSMENT AND PLAN: This is a 68-year-old male with an 80-pound weight loss since who was sent to oncology. Was found to have significant retroperitoneal lymphadenopathy, hepatosplenomegaly suspicious for lymphoma. The patient underwent axillary biopsy with the result still pending. The patient did present to [facility] due to not feeling well. Was found to be hypotensive and was taking his blood pressure medications. He had lactic acidosis, with chest x-ray with infiltrate. He was treated for presumed pneumonia, given intravenous (IV) fluids and antibiotics. Echocardiogram was unremarkable there. ACUTE ISSUES: 1. Significant retroperitoneal and chest adenopathy, status post left axillary node biopsy by radiology. Rule out lymphoma. Still awaiting preliminary from the pathologist. The patient will need an [id number]. 2. Lactic acidosis, resolved with IV fluids. 3. Fluid overload, status post IV Lasix. Currently euvolemic. 4. Dyslipidemia, on Zocor. 5. Obesity, body mass index (BMI) of 36, complicating his care. 6. Hypertension. Initial blood pressures were low. Still soft at 102 systolic. Blood pressure (BP) medications have been held. The patient is safe for hospital discharge. If no results from pathology, may discharge home with outpatient followup. [facility]
[2019-08-26 14:00] VITALS: BP 115/69
--- NOTE | 2019-09-05 18:05 | DSES ---
DATE OF ADMISSION: 08/21/2019 DATE OF DISCHARGE: 08/26/2019 MEDICAL ONCOLOGIST: Dr. Bernardo Onofre PROCEDURES DURING THIS ADMISSION: 1. Axillary lymph node biopsy. 2. Echocardiogram 08/23/2019. PRIMARY DISCHARGE DIAGNOSES: 1. Lymphoproliferative disorder. 2. Hepatosplenomegaly. 3. Significant lymphadenopathy with unknown diagnosis, status post axillary lymph node biopsy. 4. Probable lymphoma. 5. Lactic acidosis. 6. Recent coronavirus. 7. Dyslipidemia. 8. Hypertension. 9. Left adrenal nodule measuring 15 mm, consider 12-month followup with adrenal CT. DISCHARGE MEDICATIONS: - allopurinol 300 mg daily - Colace 100 mg twice a day - hydroxyzine 10 mg at bedtime - ibuprofen 400 mg four times a day - ondansetron 4 mg twice a day as needed - oxycodone 5 mg every four hours as needed for pain - simvastatin 20 mg daily - Lasix 20 mg daily to be held for systolic pressure less than 120 - lisinopril 5 mg daily hold for systolic pressure less than 120 The patient was instructed to hold his Lasix and lisinopril for a systolic pressure of less than 120 mmHg. DISCHARGE INSTRUCTIONS: The patient is to have immediate followup within five days of hospital discharge with medical oncologist, Dr. Bernardo Onofre, primary care provider within one week of discharge. The patient will need a bone marrow biopsy to be scheduled for definitive diagnosis of his lymphadenopathy and hepatosplenomegaly. Repeat CT of the adrenals in 12 months regarding left adrenal nodule measuring 15 mm. HOSPITAL COURSE: This is a 68-year-old male who was in his usual state of health until last year in 2019 when he had an upper respiratory infection treated at urgent care with antibiotics along with a 40-pound weight loss over the past two months. The patient was seen at [facility] where he was diagnosed with pneumonia, treated with Rocephin and doxycycline. Respiratory panel, however, showed coronavirus. He was found on CT abdomen and pelvis to have a 3.1 cm portal portacaval lymph node and periaortic lymph node 2 cm, hepatosplenomegaly, but denied any fevers or chills. He had been living with his sister and [id number] and felt that he had lost so much and has had no energy. The patient then presented to [facility] where he was hypotensive with systolic pressure in the 80s, unable to walk, but did not have any fevers. Chest x-ray there showed possible infiltrates, presumed pneumonia. He was hypotensive. His lisinopril and Lasix were discontinued. He was hydrated and was transferred to [facility] for oncology services due to significant lymphadenopathy and weight loss. The patient says that he has had a 70-pound weight loss since initial diagnosis and continues to lose weight. He was admitted for further evaluation of his lymphadenopathy. He was initially given vancomycin and Zosyn for presumed pneumonia. Procalcitonin was unremarkable. He underwent an axillary lymph node biopsy, sent to [facility] ([facility] and was not available on the day of discharge. He had hypotension with systolic pressure of 97, but was asymptomatic and awake, alert, and oriented. A 2D echocardiogram was unremarkable, showed normal ejection fraction. No valvular disease or pulmonary hypertension. The patient had resolution of his hypotension and lactic acidosis with vigorous hydration. He was kept on allopurinol for hyperuricemia and continued on Zocor for his dyslipidemia. Due to bilateral lower extremity edema, Dopplers were obtained which were negative for deep vein thrombosis (DVT). The patient had a history of 50-pack years of smoking but no documented history of emphysema. The patient complained of increasing lower extremity edema with fluid hydration. Lactic acidosis improved. The patient was given intravenous Lasix and was net negative balance four days prior to hospital discharge. He ambulated well and passed a home safety evaluation. Repeat CT chest, abdomen and pelvis showed minimal bilateral effusion, small bilateral lower lobe compressive atelectasis, mild mediastinal bilateral hilar adenopathy with minimal right and mild left axillary adenopathy, borderline celiac adenopathy which may be seen with chronic liver disease, in view of other adenopathy lymphoma may be a consideration, probable mild splenomegaly, left adrenal nodule measuring 15 mm consider 12-month followup. Repeat chest x-ray on 08/23/2019 showed no definite infiltrate, small bilateral pleural effusions. Respiratory panel, two sets of blood cultures were negative. Preliminary result of the fine-needle aspiration biopsy on 08/23/2019 showed atypical lymphoid infiltrate, excisional biopsy may be helpful in further evaluation. [facility] ([facility] Department of Pathology axillary lymph node core biopsy, sample yielded deoxyribonucleic acid (DNA) of insufficient quantity to provide a valid result. The patient was therefore sent for a bone marrow biopsy as outpatient. PHYSICAL EXAMINATION ON HOSPITAL DISCHARGE: Temperature 97, pulse 89, respiratory rate 20, blood pressure 102-100 systolic, diastolic 63-64, 94% on room air. GENERAL: The patient is awake, alert and oriented times three, answering questions appropriately, in no respiratory distress, able to speak in full sentences. No conversational dyspnea. The patient appears older than his stated age and disheveled with a rodriguez. Dry mucous membranes. NECK: Supple, full range of motion. No jugular venous distention (JVD), thyromegaly or cervical lymphadenopathy. LUNGS: Diminished but clear to auscultation. Fine crackles at bilateral bases HEART: S1, S2, sinus rhythm. No murmurs, rubs or gallops. Nondisplaced point of maximal impulse. No carotid bruits or abdominal bruits noted. ABDOMEN: Soft, nontender, nondistended, positive bowel sounds times four quadrants. Positive hepatosplenomegaly. No rebound. No guarding. No abdominal bruits. EXTREMITIES: 2+ pitting edema, chronic venous stasis changes. LABORATORY DATA ON DISCHARGE: White count 7.4, hemoglobin 11.7, hematocrit 37, platelet count 373. Sodium 134, potassium 4, chloride 99, bicarbonate 27, BUN 8, creatinine 0.84, glucose of 95. Respiratory panel 08/22/2019: Negative. Two sets of blood cultures after five days 08/21/2019: Negative. IMAGING STUDIES: Vascular ultrasound of bilateral lower extremities: No evidence of DVT of bilateral lower extremities. 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 No pulmonary embolism is identified. Needle aspiration axillary biopsy 08/22/2019, left axillary lymph node was localized using ultrasound guidance, eight core biopsy samples were obtained and sent to the laboratory. Chest x-ray on 08/23/2019: Small bilateral pleural effusion blunting the posterior pleural angle, no definite infiltrate. TIME SPENT ON DISCHARGE: 30 minutes. MTDD
== END 2019-08-26 16:22 | disposition home or self-care (01) | DRG 823 ==
LOC: M PCU 12:36 → M MSPAV 16:47
PROVIDERS: ADMIT Internal Medicine; ATTEND General Practice
PROC: 07B63ZX Excision of Left Axillary Lymphatic, Percutaneous Approach, Diagnostic (ICD-10-PCS; principal; 2019-08-22 14:30)
DX: C85.14 Unspecified B-cell lymphoma, lymph nodes of axilla and upper limb (principal); E43 Unspecified severe protein-calorie malnutrition; E87.2 Acidosis; I95.9 Hypotension, unspecified; G89.29 Other chronic pain; M54.5 Low back pain; M51.9 Unspecified thoracic, thoracolumbar and lumbosacral intervertebral disc disorder; Z87.891 Personal history of nicotine dependence; F10.21 Alcohol dependence, in remission; R63.4 Abnormal weight loss; E78.5 Hyperlipidemia, unspecified; Z79.899 Other long term (current) drug therapy; Z88.5 Allergy status to narcotic agent; R59.1 Generalized enlarged lymph nodes; E79.0 Hyperuricemia without signs of inflammatory arthritis and tophaceous disease; R60.1 Generalized edema; R06.02 Shortness of breath